=== PATIENT | female | born 1975 | race Caucasian/White ===

== ENCOUNTER 2018-05-07 11:20 | Emergency (ER) | payer OTHER ==
[2018-05-07 11:32] LABS: BASOPHIL (%) 0.4 % (0-1); EOSINOPHIL (%) 2.4 % (0-5); EOSINOPHIL COUNT 0.2 K/uL (0-0.3); HEMOGLOBIN 9.2 G/DL (11.9-15.5); IMMATURE GRANULOCYTE (%) 0.4 % (0.0-0.7); LYMPHOCYTE (%) 26.1 % (15-42); LYMPHOCYTE COUNT 1.9 K/uL (1.0-2.8); MCH 21.9 PG (29.0-34.0); MCHC 29.7 G/DL (30.0-36.0); MCV 73.6 FL (83-99); MONOCYTE (%) 7.4 % (3-12); MONOCYTE COUNT 0.5 K/uL (0-0.8); NEUTROPHIL (%) 63.3 % (45-76); NEUTROPHIL COUNT 4.5 K/uL (1.8-6.4); PLATELET COUNT 408 K/uL (156-360); RBC DIS.WIDTH-CV 17.9 % (11.8-14.6); RBC DIS.WIDTH-SD 47.4 % (39-53); RED BLOOD COUNT 4.21 M/uL (3.80-5.20); WHITE BLOOD COUNT 7.1 K/uL (4.1-10.2)
[2018-05-07 11:35] LABS: AMYLASE 47 IU/L (1-118); CHLORIDE 104 mEq/L (99-109); POTASSIUM 3.5 mEq/L (3.7-5.4); SODIUM 135 mEq/L (136-147)
[2018-05-07 11:36] LABS: GLUCOSE 105 mg/dL (70-99)
[2018-05-07 11:40] LABS: CREATININE 0.8 mg/dL (0.6-1.3); SERUM ETHYL ALCOHOL < 10 mg/dL
[2018-05-07 11:41] LABS: UREA NITROGEN (BUN) 7 mg/dL (9-23)
[2018-05-07 11:43] LABS: LIPASE 11 U/L (1.0-51.0)
[2018-05-07 11:49] LABS: QUANTITATIVE HCG < 4.0 MIU/ML
[2018-05-07 12:04] LABS: GFR ESTIMATE (CALCULATED) > 59 mL/min/
[2018-05-07 14:33] LABS: APPEARANCE CLEAR ((CLEAR)); BILIRUBIN NEGATIVE; BLOOD NEGATIVE; COLOR STRAW ((YELLOW)); GLUCOSE (STRIP) NEGATIVE; KETONES NEGATIVE; LEUKOCYTES NEGATIVE; NITRITE NEGATIVE; PROTEIN (STRIP) NEGATIVE; SPECIFIC GRAVITY 1.014 (1.000-1.030); UCUL ADDED? NO; UROBILINOGEN 0.2 MG/DL (0.2-1.0)
[2018-05-07 14:44] LABS: AMPHETAMINE NEGATIVE (500 ng/mL); BARBITURATES NEGATIVE (200 ng/mL); BENZODIAZEPINES NEGATIVE (150 ng/mL); BUPRENORPHINE NEGATIVE (10 ng/mL); COCAINE NEGATIVE (150 ng/mL); METHADONE NEGATIVE (200 ng/mL); METHAMPHETAMINE NEGATIVE (500 ng/mL); OPIATES (MORPHINE) NEGATIVE (100 ng/mL); OXYCODONE NEGATIVE (100 ng/mL); PHENCYCLIDINE NEGATIVE (25 ng/mL); PROPOXYPHENE NEGATIVE (300 ng/mL); THC CANNABINOIDS NEGATIVE (50 ng/mL); TRICYCLIC ANTIDEPRESSANTS NEGATIVE (300 ng/mL)
[2018-05-07] MEDS ORDERED: ULTRAM50 MG PO (15:18)
== END 2018-05-07 15:41 | disposition home or self-care (01) ==
LOC: TRA 11:20
PROVIDERS: Emergency Medicine
DX: S40.011A Contusion of right shoulder, initial encounter (principal); S80.01XA Contusion of right knee, initial encounter; V49.40XA Driver injured in collision with unspecified motor vehicles in traffic accident, initial encounter; Y92.410 Unspecified street and highway as the place of occurrence of the external cause; M25.551 Pain in right hip; M54.5 Low back pain; R51 Headache; R10.9 Unspecified abdominal pain
CPT/HCPCS: 70450; 71260; 72125; 72129; 72132; 73000; 73030; 73502; 73560; 74177; 80048; 81003; 82150; 83690; 84702; 85025; 86850; 86900; 86901; 94799; 99281; 99285; G0480; J1885